=== PATIENT | male | born 1980 | race Caucasian/White ===

== ENCOUNTER 2020-03-28 19:51 | Emergency (ER) | payer MEDICARE, MEDICAID ==
[~2020-03-28] VITALS: Ht 172.7 cm; Wt 69.5 kg
[2020-03-28 20:01] VITALS: BP 118/75
== END 2020-03-28 20:37 | disposition home or self-care (01) ==
LOC: EDBD 19:51 → M ED 19:51
DX: F10.10 Alcohol abuse, uncomplicated (principal); F17.200 Nicotine dependence, unspecified, uncomplicated